=== PATIENT | female | born 1990 | race Caucasian/White ===

== ENCOUNTER 2024-11-05 09:53 | Outpatient (CLI) | payer OTHER, SELFPAY | END 2024-11-05 09:54 | disposition home or self-care (01) | PROVIDERS: PCP Family Medicine; Visit Provider Family Medicine | DX: M25.571 Pain in right ankle and joints of right foot (principal); R93.7 Abnormal findings on diagnostic imaging of other parts of musculoskeletal system; E55.9 Vitamin D deficiency, unspecified | CPT/HCPCS: 80053; 82306 ==

== ENCOUNTER 2025-01-07 16:02 | Outpatient (CLI) | payer OTHER, SELFPAY | END 2025-01-07 16:03 | disposition home or self-care (01) | LOC: NFLDREF 01-10 23:57 | PROVIDERS: PCP Family Medicine; Referring Provider Family Medicine; Visit Provider Family Medicine | DX: E55.9 Vitamin D deficiency, unspecified (principal) | CPT/HCPCS: 82306 ==

== ENCOUNTER 2025-04-29 08:15 | Outpatient (CLI) | payer OTHER, SELFPAY | END 2025-04-29 08:16 | disposition home or self-care (01) | PROVIDERS: PCP Family Medicine; Visit Provider Family Medicine | DX: M25.50 Pain in unspecified joint (principal); R53.83 Other fatigue; Z13.6 Encounter for screening for cardiovascular disorders | CPT/HCPCS: 80061; 84443; 86038; 86431 ==

== ENCOUNTER 2025-07-08 11:47 | Outpatient (CLI) | payer OTHER, SELFPAY | END 2025-07-08 11:48 | disposition home or self-care (01) | PROVIDERS: PCP Family Medicine; Visit Provider Family Medicine | DX: Z98.84 Bariatric surgery status (principal) | CPT/HCPCS: 80048; 82330 ==

== ENCOUNTER 2025-07-13 10:11 | Outpatient (CLI) | payer OTHER, SELFPAY | END 2025-07-13 10:12 | disposition home or self-care (01) | LOC: NFLDREF 10:11 | PROVIDERS: PCP Family Medicine; Visit Provider Family Medicine | DX: Z98.84 Bariatric surgery status (principal) | CPT/HCPCS: 80048 ==